=== PATIENT | male | born 1960 | race African-American/Black ===

== ENCOUNTER 2017-10-21 11:08 | Emergency (ER) | payer OTHER ==
[~2017-10-21 11:08] MED LIST: HYDR25TA5 PO
[2017-10-21 11:09] VITALS: BP 133/79; PULSE 110; RESP 14; TEMP 99.3; O2SAT 98
[2017-10-21 13:23] LABS: BACTERIA, URINE FEW /hpf; BILIRUBIN, URINE NEG (NEG); BLOOD, URINE MOD (NEG); GLUCOSE,URINE NEG (NEG); KETONE, URINE NEG (NEG); NITRITE,URINE NEG (NEG); URINE COLOR YELLOW (YELLW/STRAW); URINE LEUKOCYTE ESTERASE LARGE (NEG)
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
[2017-10-21] MEDS ORDERED: CIPROFLOXACIN 400 MG PREMIX 200 ML IV ONE (14:00)
[2017-10-21 14:08] VITALS: BP 138/68; PULSE 100; RESP 14; TEMP 99; O2SAT 100
[2017-10-21 14:10] LABS: AUTOMATED NEUTROPHIL # 13.1 TH/MM3 (1.8-7.7); BASOPHIL # 0.1 TH/MM3 (0-0.2); BASOPHIL % 0.4 % (0.0-2.0); HEMATOCRIT 47.1 % (39.0-51.0); HEMOGLOBIN 15.9 GM/DL (13.0-17.0); LYMPH % 8.6 % (9.0-44.0); LYMPHOCYTE # 1.3 TH/MM3 (1.0-4.8); MEAN CELL VOLUME 84.7 FL (80.0-100.0); MEAN CORPUSCULAR HEMOGLOBIN 28.6 PG (27.0-34.0); MEAN CORPUSCULAR HGB CONC 33.8 % (32.0-36.0); MEAN PLATELET VOLUME 8.3 FL (7.0-11.0); MONOCYTE # 0.8 TH/MM3 (0-0.9); PLATELET COUNT 242 TH/MM3 (150-450); RED BLOOD COUNT 5.56 MIL/MM3 (4.50-5.90); RED CELL DISTRIBUTION WIDTH 14.7 % (11.6-17.2); WHITE BLOOD COUNT 15.2 TH/MM3 (4.0-11.0)
[2017-10-21 14:32] LABS: BICARBONATE 29.3 MEQ/L (21.0-32.0); CALCIUM 9.4 MG/DL (8.5-10.1); CREATININE 0.88 MG/DL (0.60-1.30)
[2017-10-21] MEDS ORDERED: CIPR-9 PO (14:41)
[2017-10-21 15:08] VITALS: BP 144/70; PULSE 97; RESP 16; TEMP 98.8; O2SAT 100
== END 2017-10-21 15:20 | disposition home or self-care (01) ==
LOC: NEPD 11:08
DX: N39.0 Urinary tract infection, site not specified (principal); B96.20 Unspecified Escherichia coli [E. coli] as the cause of diseases classified elsewhere; F41.9 Anxiety disorder, unspecified; I10 Essential (primary) hypertension; Z79.899 Other long term (current) drug therapy
CPT/HCPCS: 80048; 81001; 85025; 87077; 87086; 87186; 96365; 99284; J0744

== ENCOUNTER 2018-07-18 05:16 | Inpatient (IN) ==
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
[2018-07-18] MEDS ORDERED: Sodium Chlor 0.9% Inj 50 ML, Ropivacaine 0.5% PF Inj 24.63 ML, Ketorolac Inj 30 MG, EPI... P-ARTICULR SCH ×5 (05:45)
[2018-07-18] MEDS ORDERED: Metoprolol Tartrate 25 MG Tablet PO ONE (05:48)
[2018-07-18] MEDS ORDERED: Chlorhexidine Gluconate 2% 1 Pack (2 Cloths) TOPICAL ONE (05:48)
[2018-07-18] MEDS ORDERED: ceFAZolin 2 GM Premix Inj 2 GM/50 ML PIGGYBACK IV.SIG SCH (06:00)
[2018-07-18] MEDS ORDERED: Sodium Chlor 0.9% Inj 500 ML IV.SIG SCH (06:00)
[2018-07-18] MEDS ORDERED: Tranexamic Acid Inj 1,000 MG in Sodium Chlor 0.9% Inj 100 ML IV.SIG SCH ×2 (06:00→08:40)
[2018-07-18] MEDS ORDERED: Bupivacaine Liposomal PF 1.3% Inj 20 ML Vial ONE (06:28)
[2018-07-18] MEDS ORDERED: Glycopyrrolate Inj 1 MG/5 ML Syringe IV.PUSH ONE (06:52)
[2018-07-18] MEDS ORDERED: Neostigmine Inj 5 MG/5 ML Syringe IV.PUSH ONE (06:52)
[2018-07-18] MEDS ORDERED: Lidocaine PF 1% Inj 5 ML Syringe OTHER ONE (06:52)
[2018-07-18] MEDS ORDERED: *morphine SULFATE 4 MG/ML PERIprocedure ONLY ONE ×3 (09:39→09:52)
[2018-07-18] MEDS ORDERED: Acetaminophen 325 MG Tablet PO PRN (09:40)
[2018-07-18] MEDS ORDERED: Tranexamic Acid Inj 1,000 MG in Sodium Chlor 0.9% Inj 100 ML IV.SIG ONE (09:40)
[2018-07-18] MEDS ORDERED: Post-op Orders (for Pharmacy) OTHER STA (09:40)
[2018-07-18] MEDS ORDERED: Naloxone Inj 0.4 MG/ML Vial IV.PUSH PRN (09:40)
[2018-07-18] MEDS ORDERED: Bisacodyl 10 MG Supp RECTAL PRN (09:40)
[2018-07-18] MEDS ORDERED: Morphine Inj 4 MG/ML Vial IV.PUSH PRN (09:40)
[2018-07-18] MEDS ORDERED: Aluminum/Magnesium/Simethacone Susp 30 ML UDC PO PRN (09:40)
[2018-07-18] MEDS ORDERED: Zolpidem Tartrate 5 MG Tablet PO PRN (09:40)
[2018-07-18] MEDS ORDERED: fentaNYL Citrate Inj 100 MCG/2 ML Ampul ONE (09:42)
[2018-07-18] MEDS ORDERED: Morphine Inj 4 MG/ML Vial ONE (09:42)
[2018-07-18] MEDS ORDERED: *HYDROmorphone PF Inj 1 MG/ML Ampul PERIprocedural Use ONLY ONE ×3 (09:58→10:17)
--- NOTE | 2018-07-18 10:03 | P.DCO ---
- Diagnosis (1) Degenerative joint disease of knee, left Status: Acute - Physical Therapy Order: Evaluate and treat, Improve ambulation, Strength and gait training - Home Health Nursing Order: Medication education-adverse effect, Wound care and dressing changes - Home Health Aide Order: To assist in: Bathing and personal care - Pediatric Allergist Order: To evaluate: Living conditions/environment, Support services Order: To provide: Long range planning, Community services - Case Management Consult Yes - Certification I have seen patient Marcus Flood on 07/18/18. My clinical findings support the need for the requested home health care services because: Limited ability to care for self, High risk of falls I certify that my clinical findings support that this patient is homebound because: Post-op weakness, Unsteady gait/balance, Unsafe to leave home unassisted (1) Degenerative joint disease of knee, left Qualifiers: Osteoarthritis type: primary Qualified Code(s): M17.12 - Unilateral primary osteoarthritis, left knee
--- NOTE | 2018-07-18 10:19 | MP ---
cc: Tayo Jhaveri MD DATE OF OPERATION: 07/18/2018 PREOPERATIVE DIAGNOSIS: Osteoarthritis of the left knee. POSTOPERATIVE DIAGNOSIS: Osteoarthritis of the left knee. PROCEDURE PERFORMED: Left total knee arthroplasty. SURGEON: Tayo Jhaveri MD ANESTHESIA: General endotracheal. INDICATIONS: A 57-year-old black male with a 3-year history of left knee pain of gradual onset unrelated to injury or unusual activity. He had undergone previous orthopedic evaluation and at that time, his initial x-ray studies were without evidence of any acute bony abnormality. The patient was diagnosed as having synovitis with possible internal derangement, for which he was treated with anti-inflammatory medication, and followed on an outpatient basis. A subsequent MRI scan identified a complex tear involving the medial meniscus with a medially extruded fragment and moderate medial compartment chondromalacia. The patient later underwent arthroscopic surgery, for which he did note some initial trend of improvement. Unfortunately, his discomfort became more pronounced with the passage of time, for which he did receive an intraarticular steroid injection, while continuing to use diclofenac on a routine basis. His symptoms became more pronounced and he was later prescribed a medial offloading brace. Unfortunately, his insurance would not cover such an apparatus, and the patient was unable to afford the device from an independent standpoint. He continued to experience pain about his left knee that began to limit all weightbearing activities, and when seen in followup disposition, his current x-ray studies revealed essentially [id number] apposition about the medial compartment, associated with a varus deformity of at least 10 degrees magnitude. The pros and cons of continuing with conservative management versus operative intervention that would involve total knee arthroplasty were outlined. Emphasis was made regarding the fact that the decision to proceed with surgery would be left entirely to the patient's discretion. The patient readily admitted that he felt his symptoms had progressed to that point in time, where he was ready to proceed accordingly and in compliance with his wishes, he was scheduled for admission in order that the above be accomplished. DESCRIPTION OF PROCEDURE: Following induction of satisfactory general anesthesia by endotracheal intubation as completed per the department of anesthesia, a tourniquet was established around the proximal portion of the left lower extremity. The extremity proper was isolated with a U-drape, thereafter being prepped with Betadine solution, and draped into a sterile field in the routine manner. Prior to initiation of the actual procedure, the standard timeout protocol was completed. All parameters were appropriately addressed and confirmed by operating room personnel. The extremity was elevated for approximately 1 minute and the tourniquet, thus inflated to 250 mmHg pressure. A sharp skin incision was initiated midline over the anterior aspect of the knee, and developed through underlying subcutaneous tissue with hemostasis maintained by electrocautery. By deepening dissection, the anterior capsule was exposed, the medial capsulotomy completed, and the patella subluxed in a lateral orientation. Examination of the joint space revealed significant degenerative changes extending throughout the medial compartment, where there was complete erosion of articular cartilage and underlying subchondral bone exposed. The degenerative process extended into the medial aspect of the lateral femoral condyle, as well as secondary involvement of the patellofemoral articulation. The articular surface of the patella was resected with power saw. The 3-holed guide was utilized for establishing post-holes. The anterior cruciate ligament, as well as medial and lateral meniscus structures were sharply excised. A centering hole was placed in the distal aspect of the femur, allowing positioning of the intramedullary guide. The distal femoral cutting jig was attached and the distal femur resected. AP measurement noted 75 mm sizing to be satisfactory. The matching cutting block was positioned. Anterior, posterior, and chamfer cuts were completed. The tibial plateau was thereafter subluxed in an anterior orientation, allowing positioning of the extramedullary guide. The tibial plateau was resected and measured with 87 mm size, and determined to be satisfactory. A trial reduction followed utilizing a 75-mm anatomic femoral component. An 87 mm tibial base with both 10 and 12 mm bearing inserts trialed. The 12 mm thickness was determined to be the more favorable fit. The knee was readily brought to full extension. There was no laxity to varus and valgus stress at both 0 and 90 degrees flexed posture. Orientation was confirmed as being appropriate with measurement of the pelvic guide through the mechanical access of the knee. A trial reduction followed, utilizing a 37 mm standard 3 post-patellar button. Once again, good tracking was noted with no tendency towards subluxation. All trial components being removed, the remaining portion of the proximal tibia was prepared for insertion of the permanent component. The joint space was thoroughly lavaged with pulsating antibiotic solution, hemostasis being maintained by electrocautery. An autogenous bone plug was inserted in the distal femoral guide hole, and thereafter a preparation of Biomet bone cement was utilized in inserting knee components in a sequential fashion, which included an 87 mm fixed cruciate tibial plate, to which a 12 mm Vanguard tibial-bearing insert was secured with locking gallegos. The 75 mm Vanguard femoral component was firmly seated onto the distal femur, excess cement being removed. The knee was brought to full extension and thereafter, the 3-post standard 37 mm patellar button was attached and maintained in place with patellar clamp while cement hardening was completed. Final range of motion assessment noted good tracking and stability throughout the knee. Irrigation was repeated with hemostasis maintained. SureTrans drain tubes were inserted through superior stab wounds. The capsule was repaired with 0 Vicryl suture. The remaining portion of the wound was closed in layers in the routine manner, skin margins being reapproximated with a running subcuticular 3-0 Vicryl suture over which Steri-Strips were applied. Xeroform gauze and a bulky dry sterile dressing were placed. Tourniquet deflated after 60 minutes of tourniquet time. The patient thereafter being transferred to a hospital bed, and returned to the recovery room in satisfactory condition, having tolerated his operative procedure well. Estimated blood loss was approximately 250 mL as determined per anesthesia. All implants were Biomet security checker. MD PATSY Rand/keyonna , 09:32 AM , 09:44 AM
--- NOTE | 2018-07-18 10:30 | XR ---
EXAM DATE: 07/18/2018 9:35 AM EDT AGE/SEX: 57 years / Male INDICATIONS: Post op left total knee replacement. CLINICAL DATA: This is the patient's initial encounter. Patient reports that signs and symptoms have been present for 1 day and indicates a pain score of 7/10. MEDICAL/SURGICAL HISTORY: Hypertension. . COMPARISON: No prior exams available for comparison. FINDINGS: Left total knee arthroplasty is present. Hardware appears intact. Alignment is anatomic. Surgical yissel ins are present. CONCLUSION: Satisfactory appearance post left TKA Electronically signed by: Kayden Nuñez MD 07/18/2018 10:29 AM EDT
[2018-07-18] MEDS: Morphine Inj 30 MG/30 ML PCA.VIAL PCA PRN ×2 (10:35→19:16)
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
[2018-07-18] MEDS: Senna/Docusate Sodium 8.6/50 MG Tablet PO SCH (20:24)
[2018-07-18] MEDS: Aspirin 325 MG Tablet PO SCH (20:24)
[2018-07-19 07:05] LABS: Hemoglobin 12.4 gm/dL (13.0-17.0)
[2018-07-19 07:33] LABS: Anion Gap 7 meq/L (5-15); Blood Urea Nitrogen 10 mg/dL (7-18); Calcium 7.9 mg/dL (8.5-10.1); Carbon Dioxide 28.9 meq/L (21.0-32.0); Chloride 99 meq/L (98-107); Glomerular Filtration Rate Greater Than 89 mL/min (>89); Glucose,Random 130 mg/dL (74-106); Magnesium 1.7 mg/dL (1.5-2.5); Potassium 3.5 meq/L (3.5-5.1); Sodium 135 meq/L (136-145)
[2018-07-19] MEDS: Aspirin 325 MG Tablet PO SCH ×3 (10:04→20:13)
[2018-07-19] MEDS: Multivitamin/Minerals Therapeutic Tablet PO SCH (10:04)
[2018-07-19] MEDS: hydroCHLOROthiazide 25 MG Tablet PO SCH (10:04)
[2018-07-19] MEDS: Senna/Docusate Sodium 8.6/50 MG Tablet PO SCH ×3 (10:04→20:14)
[2018-07-19] MEDS: Ascorbic Acid 500 MG Tablet PO SCH (10:04)
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
[2018-07-19] MEDS ORDERED: Mag Sulf 1 gm/100 ml Premix 100 ML IV.SIG ONE (11:00)
[2018-07-20 08:39] VITALS: TEMP 98; O2SAT 98
[2018-07-20] MEDS: Multivitamin/Minerals Therapeutic Tablet PO SCH (09:46)
[2018-07-20] MEDS: Senna/Docusate Sodium 8.6/50 MG Tablet PO SCH (09:46)
[2018-07-20] MEDS: Ascorbic Acid 500 MG Tablet PO SCH (09:46)
[2018-07-20] MEDS: Aspirin 325 MG Tablet PO SCH (09:46)
[2018-07-20] MEDS: hydroCHLOROthiazide 25 MG Tablet PO SCH (09:46)
[2018-07-20 12:10] VITALS: BP 121/60; PULSE 94; RESP 18
--- NOTE | 2018-07-21 10:28 | MD ---
cc: Tayo Jhaveri MD DATE OF DISCHARGE: 07/20/2018 ADMITTING DIAGNOSIS: Osteoarthritis left knee. DISCHARGE DIAGNOSIS: Osteoarthritis left knee. HISTORY: A 57-year-old black male with a 3-year history of progressive left knee pain as related to osteoarthritis. He had completed full course of conservative management in the past and had also undergone previous arthroscopic surgery without any long-term benefit being noted. He continued to experience progressive pain about the left knee for which, subsequent x-ray studies had revealed obvious degenerative changes with [id number] apposition about the medial compartment, associated with a varus deformity of at least 10 degrees magnitude. The patient had indicated his desire for a more definitive course of treatment for which the involvement of total knee arthroplasty was outlined. The patient indicated his full understanding and expressed a desire to proceed accordingly for which he was scheduled for admission at this time. For additional information with regard to the pertinent findings of his history of the present illness, interested parties would be directed to the full documentation of his admitting history and physical examination. PHYSICAL EXAMINATION: MUSCULOSKELETAL: His physical examination at the time of admission revealed left knee without appreciable swelling or effusion. There was medial joint line tenderness, without palpable deformity. Apprehension and compression sign negative. Limited mobility at the extremes of flexion without significant crepitation associated with pain noted. No collateral ligamentous laxity. Denisha test and drawer sign negative. Pivot shift and Staci sign positive for medial compartment pain. Straight leg raising unremarkable at 80 degrees. Satisfactory mobility of the left hip with no associated pain. Independent gait. HOSPITAL COURSE: Prior to admission to the hospital, the patient had undergone medical evaluation and clearance for surgery as completed by his primary care physician. He was taken to the operating room on 18 July 2018 and on that date underwent a left total knee arthroplasty completed in an uncomplicated manner. The patient was noted to have tolerated his operative procedure well. His postoperative course stable thereafter. Hemoglobin and hematocrit assessment postoperatively was 12.4 and 37.0 respectively. The patient was progressively mobilized under the guidance of physical therapy being permitted weightbearing to tolerance about the left lower extremity. Followup examination of the surgical wound noted to be intact, healing favorably with no evidence of infection. Medical followup per the hospitalist service. DVT prophylaxis initiated. Hvac Sheet Metal Installer Helper consulted to assist with discharge planning. The patient indicated his desire to be discharged home and continue his rehabilitation on an outpatient basis. Plans were finalized in this regard and pending medical clearance, he was scheduled for discharge on the second postoperative day, at which time he was noted to be making favorable progress with regard to his initial rehabilitation program. He was scheduled to be seen in office followup in approximately 4 weeks. CONDITION AT THE TIME OF DISCHARGE: Stable. PROGNOSIS: Favorable. DISCHARGE MEDICATIONS: Include: 1. Hydrocodone 5/325, #30 2. Aspirin 325 mg 1 tab twice daily for 3 weeks, #40. Tayo Jhaveri MD NBS/ld , 07:03 AM , 07:10 AM
== END 2018-07-20 12:58 | disposition home health service (06) ==
LOC: HSDI 05:16 → N06 12:04
PROVIDERS: ADMIT Orthopaedic Surgery; ATTEND Orthopaedic Surgery